=== PATIENT | male | born 1950 | race Caucasian/White ===

== ENCOUNTER → 2019-11-09 | Outpatient (CLI) | payer OTHER, MEDICARE | LOC: SJCVC 14:34 | PROVIDERS: ATTEND Internal Medicine Cardiovascular Disease | DX: Z01.818 Encounter for other preprocedural examination (principal); R00.0 Tachycardia, unspecified; I48.0 Paroxysmal atrial fibrillation; G20 Parkinson's disease; E78.00 Pure hypercholesterolemia, unspecified; D68.59 Other primary thrombophilia; Z79.899 Other long term (current) drug therapy; Z86.711 Personal history of pulmonary embolism ==

== ENCOUNTER → 2019-11-10 | Outpatient (CLI) | payer OTHER, MEDICARE | LOC: SJCVCIMAG 15:04 | PROVIDERS: ATTEND Internal Medicine Cardiovascular Disease | DX: Z01.818 Encounter for other preprocedural examination (principal); I48.91 Unspecified atrial fibrillation; I49.3 Ventricular premature depolarization; R00.0 Tachycardia, unspecified; Z79.899 Other long term (current) drug therapy ==